=== PATIENT | female | born 1990 | race Caucasian/White ===

== ENCOUNTER → 2020-08-22 | Outpatient (CLI) | payer OTHER ==
[~2020-08-22] MED LIST: PROP40TA5 PO; SMTR50T PO
--- NOTE | 2020-08-22 12:25 | Diagnostic Imaging Report ---
PROCEDURE: Pelvic comp/transvaginal sonogram. TECHNIQUE: Complete transabdominal and transvaginal pelvic ultrasound was performed. In addition, limited pelvic Doppler was performed. INDICATION: Amenorrhea. Uterus is anteverted measuring 7.6 x 3.3 x 4.0 cm. There is some heterogeneity in the region of the cervix but no discrete mass is identified. There are small amount of fluid in endocervical canal. Endometrium is 12 mm in thickness. No myometrial mass is identified. Right ovary measures 2.9 x 2.8 x 2.0 cm left ovary measures 2.5 x 1.8 x 2.3 cm. There is blood flow to the ovaries. Ovaries contain multiple follicles. Small amount free fluid is present. IMPRESSION: Essentially unremarkable transabdominal and transvaginal pelvic ultrasound apart from minimal fluid in the endocervical canal. Dictated by: Dictated on workstation # [id number]
== END ==
LOC: RAD 10:00
PROVIDERS: ATTEND Obstetrics & Gynecology
DX: N91.2 Amenorrhea, unspecified (principal)
CPT/HCPCS: 76830; 76856